=== PATIENT | female | born 2000 | race Caucasian/White ===

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

== ENCOUNTER → 2019-04-12 | Outpatient (CLI) | payer OTHER | END | disposition home or self-care (01) | LOC: RADCTMAIN 12:03 | PROVIDERS: ATTEND Psychiatry & Neurology Neurology | DX: Z53.9 Procedure and treatment not carried out, unspecified reason (principal) ==

== ENCOUNTER 2020-06-28 06:15 | Inpatient (IN) | payer OTHER ==
--- NOTE | 2020-06-27 17:48 | P.HPOB ---
History of Present Illness H&P Date: 06/27/20 Chief Complaint: Induction of labor This is a 19 y.o. female, 2, para 1, with an estimated date of confinement of 06/29/2020, estimated gestational age of 39 6/7 weeks, who presents for induction of labor. She does feel occasional contractions and pressure. Good movement. labs: GC/Chlamydia/Trich-neg Hepatitis B surface antigen-neg RPR-NR Rubella-immune Blood type-O+ Antibody screen-neg HIV-NR Hemoglobin-12.8 Random glucose-71 1 hr. GTT-96 GBS-neg OB Hx: . 1 vaginal delivery. [employer] Hx: No hx STDs Social Hx: . Engaged. Works part-time [employer]. Review of Systems Constitutional: Denies chills, Denies fever Eyes: denies blurred vision, denies pain Ears, nose, mouth and throat: Denies headache, Denies sore throat Cardiovascular: Denies chest pain, Denies shortness of breath Respiratory: Denies cough Gastrointestinal: Reports abdominal pain (irreg. ctxs) Genitourinary: Reports pelvic pain, Reports Musculoskeletal: Reports low back pain Integumentary: Denies pruritus, Denies rash Neurological: Denies numbness, Denies weakness Psychiatric: Denies anxiety, Denies depression Past Medical History Past Medical History: No Reported History History of Any Multi-Drug Resistant Organisms: None Reported Past Surgical History: No Surgical Hx Reported Past Psychological History: No Psychological Hx Reported Smoking Status: Current every day smoker Past Alcohol Use History: None Reported Past Drug Use History: None Reported - Past Family History Father Additional Family Medical History / Comment(s): Merrick's Chorea Medications and Allergies Allergies Allergy/AdvReac Type Severity Reaction Status Date / Time No Known Allergies Allergy Verified 06/27/20 17:46 Exam Osteopathic Statement: *. No significant issues noted on an osteopathic structural exam other than those noted in the History and Physical/Consult. HEENT: within normal limits Heart: regular rate and rhythm Lungs: clear to auscultation bilaterally Abdomen: Cervix: 4 cm/70%/-2 heart tones: 140's by doppler Extremites: Neg. Ada's Assessment and Plan (1) 39 weeks gestation of Status: Acute Code(s): Z3A.39 - 39 WEEKS GESTATION OF SNOMED Code(s): 95863806 Plan: Admission for oxytocin induction. Expectant management. Epidural if desired.
[2020-06-28] MEDS ORDERED: LIDOCAINE 0.5% (PF) 5 MG/ML (50 ML SDV) SQ PRN (06:44)
[2020-06-28] MEDS ORDERED: CARBOPROST TROMETHAMINE 250 MCG/ML 1 ML AMP IM PRN (06:44)
[2020-06-28] MEDS ORDERED: METHYLERGONOVINE 0.2 MG/ML 1 ML AMP IM PRN (06:44)
[2020-06-28] MEDS ORDERED: TERBUTALINE 1 MG/ML VIAL SQ PRN (06:44)
[2020-06-28] MEDS ORDERED: LIDOCAINE 1% (10MG/ML) FOR IV START INTRADERMA PRN (06:44)
[2020-06-28] MEDS ORDERED: OXYTOCIN 30 UNITS/500 ML NS 30 UNIT in SALINE 1 500ML.BAG IV SCH (06:44)
[2020-06-28] MEDS ORDERED: OXYTOCIN 10 UNIT/ML 1 ML VIAL IM PRN (06:44)
[2020-06-28] MEDS: LACTATED RINGERS 1,000 ML IV SCH ×2 (06:48→10:23)
[2020-06-28 06:54] LABS: Basophils # (A) 0.1 k/uL (0-0.2); Basophils % (A) 1 %; Eosinophils # (A) 0.2 k/uL (0-0.7); Eosinophils % (A) 2 %; HCT 32.9 % (34.0-46.0); HGB 11.1 gm/dL (11.4-16.0); Lymphocytes # (A) 2.6 k/uL (1.0-4.8); Lymphocytes % (A) 17 %; MCH 29.2 pg (25.0-35.0); MCHC 33.8 g/dL (31.0-37.0); MCV 86.5 fL (80.0-100.0); Mean Platelet Volume 6.9; Monocytes # (A) 0.7 k/uL (0-1.0); Monocytes % (A) 5 %; Neutrophils # (A) 11.1 k/uL (1.3-7.7); Neutrophils % (A) 75 %; Platelet Count 391 k/uL (150-450); WBC 14.8 k/uL (4.0-11.0)
[2020-06-28] MEDS ORDERED: fentaNYL (PF) 50 MCG/ML 5 ML AMP ONE (09:50)
[2020-06-28] MEDS ORDERED: ROPIVACAINE 5MG/ML 20ML VIAL ONE (09:50)
[2020-06-28] MEDS ORDERED: SODIUM CHLORIDE 0.9% 100 ML BAG ONE (09:50)
[2020-06-28] MEDS ORDERED: diphenhydrAMINE 50 MG CAP PO PRN (12:24)
[2020-06-28] MEDS ORDERED: HYDROCORTISONE 2.5% RECTAL CREAM 30 GM TUBE RECTAL PRN (12:24)
[2020-06-28] MEDS ORDERED: IBUPROFEN 600 MG TAB PO PRN (12:24)
[2020-06-28] MEDS ORDERED: OXYTOCIN 20 UNITS/1000 ML NS 1,000 ML IV SCH (12:24)
[2020-06-28] MEDS ORDERED: ZOLPIDEM 5 MG TAB PO PRN (12:24)
[2020-06-28] MEDS ORDERED: BENZOCAINE/MENTHOL SPRAY 1 GM/SPRAY AEROSOL TOPICAL PRN (12:24)
[2020-06-28] MEDS ORDERED: ACETAMINOPHEN TAB 325 MG TAB PO PRN (12:24)
[2020-06-28] MEDS ORDERED: diphenhydrAMINE 25 MG CAP PO PRN (12:24)
[2020-06-28] MEDS ORDERED: diphenhydrAMINE 50 MG/ML 1 ML VIAL IVP PRN ×2 (12:24)
[2020-06-28] MEDS ORDERED: SIMETHICONE 80 MG CHEWABLE PO PRN (12:24)
[2020-06-28] MEDS ORDERED: LANOLIN CREAM 5 GM TUBE TOPICAL PRN (12:24)
--- NOTE | 2020-06-28 12:33 | P.PROBDLV ---
Vaginal Delivery Note - . Vaginal Delivery Note: the patient progressed to complete dilation after oxytocin induction of labor and artificial rupture membranes with clear fluid noted. She did receive epidural anesthesia. Once reaching complete dilation, she began pushing. Infant's head came to a crown. With one further push, the infant's head delivered across the perineum followed by the anterior shoulder. With one further push the remainder the infant easily delivered with reducing nuchal cord times one around the body with delivery. Infant was placed on mother's abdomen and nose and mouth were bulb suctioned. Cord was clamped and cut and infant was taken to warmer for evaluation. A viable female infant was noted with scores of 9 at 1 minute and 10 at 5 minutes and infant weight of 7 lbs. 1 oz. Placenta delivered shortly thereafter, intact, with a three-vessel cord. Uterus contracted well after oxytocin was given and uterine massage was carried out. Inspection of the perineum revealed no perineal lacerations. Estimated blood loss is approximately 50 mL's. Both mother and infant are in stable condition.
[2020-06-28 14:41] VITALS: RESP 18
[2020-06-28] MEDS: SENNOSIDES-DOCUSATE SODIUM 1 EACH TAB PO SCH (20:43)
[2020-06-28] MEDS: PRENATAL VIT-IRON-FOLIC ACID 1 EACH CAP PO SCH (20:43)
[2020-06-29 06:30] LABS: Basophils # (A) 0.1 k/uL (0-0.2); Basophils % (A) 0 %; Eosinophils # (A) 0.2 k/uL (0-0.7); Eosinophils % (A) 2 %; HGB 10.7 gm/dL (11.4-16.0); Lymphocytes # (A) 2.7 k/uL (1.0-4.8); Lymphocytes % (A) 21 %; MCH 29.3 pg (25.0-35.0); MCHC 33.6 g/dL (31.0-37.0); MCV 87.3 fL (80.0-100.0); Mean Platelet Volume 7.2; Monocytes # (A) 0.5 k/uL (0-1.0); Monocytes % (A) 4 %; Neutrophils % (A) 71 %; Platelet Count 326 k/uL (150-450); RBC 3.66 m/uL (3.80-5.40); WBC 12.6 k/uL (4.0-11.0)
[2020-06-29 08:14] VITALS: BP 100/65; PULSE 76; TEMP 98
--- NOTE | 2020-06-29 11:05 | P.DS ---
Providers Date of admission: 06/28/20 06:24 Expected date of discharge: 06/29/20 Attending physician: Sandra Patel Primary care physician: Stated None - Discharge Diagnosis(es) (1) 39 weeks gestation of Current Visit: No Status: Acute Hospital Course: This is a 19-year-old female 2 para 1 at 39-6/7 weeks who presented for induction of labor. She underwent oxytocin induction of labor and delivered vaginally a viable female on 06/28/2020 with scores of 9 at 1 minute and 10 at 5 minutes and weight of 7 lbs. 7 oz. Her course was uncomplicated. Lochia was minimal. She is breast-feeding. Pain is fairly well controlled. Vital signs are stable. Abdomen is soft with fundus firm and nontender. Extremities show negative Homans. Impression is status post vaginal delivery day #1. Plan is to discharge home. Routine instructions are given. She is given a prescription for a breast pump. She denies the need for any pain medication. She is advised follow-up in the office in 6 weeks for check. She is advised to call the office if she has any further questions or concerns prior to her appointment time. Procedures: Oxytocin induction of labor Spontaneous vaginal delivery of a viable female infant on 06/28/2020 Patient Condition at Discharge: Stable Plan - Discharge Summary New Discharge Prescriptions: No Action Pnv No.95/Ferrous Fum/Folic AC [ Multivitamin Tablet] 1 tab PO DAILY Discharge Medication List Pnv No.95/Ferrous Fum/Folic AC [ Multivitamin Tablet] 1 tab PO DAILY 06/28/20 [History] Follow up Appointment(s)/Referral(s): Sandra Patel DO [Doctor of Osteopathic Medicine] - 6 Weeks Activity/Diet/Wound Care/Special Instructions: Instructions 1. Do not begin any exercise program for 3 weeks. 2. Do not resume sexual relations for 3 weeks or longer if uncomfortable. 3. You may take tub baths or showers at any time. 4. You may use tampons if desired after 3 weeks. 5. Keep the area of episiotomy (stitches) clean and dry. 6. If you are not nursing, wear a good fitting, supportive bra during the day and limit fluid intake for at least 1 week to prevent breast engorgement. 7. Call the office, [phone], within the next week to make appointment for your 6 week checkup if it has not already been made. 8. Report any of the following occurrences to the doctor promptly: a. Heavy, excessive bleeding b. Chills, fever c. Burning or frequency of urination d. Pain or redness and breasts if nursing e. Increasing pain or swelling in episiotomy (stitches). In addition to the above instructions, the following additional should be follow ed: 1. No heavy lifting or straining (exercising) until after 6 week checkup. 2. Keep abdominal incision clean and dry: You may wear a dressing if more comfortable. 3. Make office appointment for 10 days after going home or as instructed by her doctor. Discharge Disposition: HOME SELF-CARE
[2020-06-29] MEDS: PRENATAL VIT-IRON-FOLIC ACID 1 EACH CAP PO SCH (14:23)
[2020-06-29] MEDS: SENNOSIDES-DOCUSATE SODIUM 1 EACH TAB PO SCH (14:23)
== END 2020-06-29 14:27 | disposition home or self-care (01) | DRG 807 ==
LOC: 4FBP 06:24
PROVIDERS: ADMIT Obstetrics & Gynecology; ATTEND Obstetrics & Gynecology
PROC: 10907ZC Drainage of Amniotic Fluid, Therapeutic from Products of Conception, Via Natural or Artificial Opening (ICD-10-PCS; principal; 2020-06-28)
PROC: 3E0R3BZ Introduction of Anesthetic Agent into Spinal Canal, Percutaneous Approach (ICD-10-PCS; principal; 2020-06-28)
PROC: 00HU33Z Insertion of Infusion Device into Spinal Canal, Percutaneous Approach (ICD-10-PCS; principal; 2020-06-28)
PROC: 10E0XZZ Delivery of Products of Conception, External Approach (ICD-10-PCS; principal; 2020-06-28)
PROC: 3E033VJ Introduction of Other Hormone into Peripheral Vein, Percutaneous Approach (ICD-10-PCS; principal; 2020-06-28)
DX: O69.81X0 Labor and delivery complicated by cord around neck, without compression, not applicable or unspecified (principal); Z37.0 Single live birth; F17.200 Nicotine dependence, unspecified, uncomplicated; O99.334 Smoking (tobacco) complicating childbirth; Z3A.39 39 weeks gestation of pregnancy; Z79.899 Other long term (current) drug therapy; Z82.0 Family history of epilepsy and other diseases of the nervous system
CPT/HCPCS: 85025; 86850; 86900; 86901

== ENCOUNTER → 2021-07-29 | Outpatient (CLI) | payer OTHER ==
--- NOTE | 2021-07-29 16:35 | US ---
EXAMINATION TYPE: US pelvic complete DATE OF EXAM: 07/29/2021 COMPARISON: NONE CLINICAL HISTORY: 21-year-old female N93.8 dysfunctional uterine bleeding. TECHNIQUE: Transabdominal (TA). Date of LMP: Today, 07/29/2021 FINDINGS: EXAM MEASUREMENTS: Uterus: 8.7 x 4.9 x 5.4 cm Endometrial Stripe: 1.4 cm Right Ovary: 2.8 x 2.7 x 2.5 cm Left Ovary: 3.4 x 2.4 x 2.6 cm 1. Uterus: Anteverted and otherwise appears wnl 2. Endometrium: Thickening to the upper limits of normal. 3. Right Ovary: Normal follicular change. 4. Left Ovary: A few follicles are present within. 5. Bilateral Adnexa: wnl 6. Posterior cul-de-sac: wnl IMPRESSION: 1. Endometrial stripe thickness of 1.4 cm corresponds to the late secretory phase of the menstrual cy alex. 2. No specific abnormality otherwise seen.
== END | disposition home or self-care (01) ==
LOC: RADUSWWP 15:14
PROVIDERS: ATTEND Obstetrics & Gynecology
DX: R93.89 Abnormal findings on diagnostic imaging of other specified body structures (principal)
CPT/HCPCS: 76856